=== PATIENT | female | born 1930 | race Caucasian/White ===

== ENCOUNTER 2016-06-24 11:44 | Emergency (ER) | payer OTHER, BC ==
--- NOTE | 2016-06-24 12:18 | PDOC ---
History of Present Illness - History of Present Illness Initial Comments: 06/24/16 12:29 The patient is an 86-year-old woman, accompanied by daughter, with a significant past medical history of hypertension, hypothyroidism, diabetes mellitus, endometrial Ca status post full hysterectomy, Parkinson's disease and dementia who presents to the emergency department for further evaluation of a witnessed mechanical fall. History was obtained by patient's daughter. As per daughter, the patient was in the bathroom, washing her hands, when she attempted to grab her cane and lost her balance and questionably hit her head. No loss of consciousness. Patient's daughter attributes this to patient's Parkinson's disease, as she has noted it has gotten worse for the past several months (notes increasing tremors). As per patient, she denies any pain or any associated symptoms of chest pain, shortness of breath, palpitations, headaches , lightheadedness, dizziness, nausea, vomiting, visual changes. No recent fever , chills, cough, rhinorrhea, sneezing, abdominal pain. No urinary symptoms Allergies: No Known Drug Allergies Past Surgical History: Total hysterectomy. Appendectomy. Social History: Never smoked. No ETOH or recreational drug use. Primary Care Physician: Dr. Jennifer Dennis <Vivian Espinosa - Last Filed: 06/24/16 13:01> - General History Source: Patient, Family, Old Records Exam Limitations: No Limitations <Ivelisse Toth - Last Filed: 06/24/16 15:53> - General Chief Complaint: Syncope/Near Syncope Stated Complaint: FALL Time Seen by Provider: 06/24/16 12:06 Past History <Vivian Espinosa - Last Filed: 06/24/16 13:01> - Past Medical History Dementia: Yes Diabetes: Yes HTN: Yes - Surgical History Abdominal Surgery: Yes (EXPLORATIVE) Appendectomy: Yes - Psycho/Social/Smoking Cessation Hx Anxiety: No Suicidal Ideation: No Smoking History: Never smoked Have you smoked in the past 12 months: No Hx Alcohol Use: No Drug/Substance Use Hx: No Substance Use Type: None <Ivelisse Toth - Last Filed: 06/24/16 15:53> - Past Medical History Allergies/Adverse Reactions: Allergies Allergy/AdvReac Type Severity Reaction Status Date / Time No Known Allergies Allergy Verified 06/24/16 11:53 Home Medications: Ambulatory Orders Amlodipine Besylate 10 mg PO DAILY 06/24/16 Aspirin [ASA -] 81 mg PO DAILY 06/24/16 Bimatoprost [Lumigan] 1 drop IO DAILY 06/24/16 Carbidopa/Levodopa [Carbidopa-Levodopa 25-100 Tab] 1 each PO TID 06/24/16 Ergocalciferol [Drisdol -] 50,000 unit PO Q7D@1000 06/24/16 Hydrochlorothiazide [Hctz -] 12.5 mg PO DAILY 06/24/16 Levothyroxine [Synthroid -] 175 mcg PO DAILY 06/24/16 Magnesium Oxide [Magnesium] 400 mg PO DAILY 06/24/16 Metoprolol Tartrate 25 mg PO DAILY 06/24/16 Metronidazole 0.75% Gel [Metrogel 0.75% Gel -] 1 applic TP DAILY 06/24/16 Nitrofurantoin Monohyd/M-Cryst [Macrobid -] 100 mg PO BID #14 capsule 06/24/16 Valsartan 160 mg PO DAILY 06/24/16 Review of Systems - Review of Systems Able to Perform ROS?: Yes Comments:: 06/24/16 12:29 CONSTITUTIONAL: Absent: fever, chills, diaphoresis, generalized weakness, malaise, loss of appetite HEENT: Absent: rhinorrhea, nasal congestion, throat pain, throat swelling, difficulty swallowing, mouth swelling, ear pain, eye pain, visual Changes CARDIOVASCULAR: Absent: chest pain, syncope, palpitations, irregular heart rate , lightheadedness, peripheral edema RESPIRATORY: Absent: cough, shortness of breath, dyspnea with exertion, orthopnea, wheezing, stridor, hemoptysis GASTROINTESTINAL:Absent: abdominal pain, abdominal distension, nausea, vomiting , diarrhea, constipation, melena, hematochezia GENITOURINARY: Absent: dysuria, frequency, urgency, hesitancy, hematuria, flank pain, genital pain MUSCULOSKELETAL: Absent: myalgia, arthralgia, joint swelling SKIN: Absent: rash, itching, pallor HEMATOLOGIC/IMMUNOLOGIC: Absent: easy bleeding, easy bruising, lymphadenopathy, frequent infections ENDOCRINE:Absent: unexplained weight gain, unexplained weight loss, heat intolerance, cold intolerance NEUROLOGIC: Present: Unsteady gait. Mechanical fall. Absent: headache, focal weakness or paresthesias, dizziness, seizure, mental status changes, bladder or bowel incontinence PSYCHIATRIC: Absent: anxiety, depression, suicidal or homicidal ideation, hallucinations <Vivian Espinosa - Last Filed: 06/24/16 13:01> *Physical Exam - Vital Signs Last Vital Signs Temp Pulse Resp BP Pulse Ox 98.0 F 51 L 18 220/77 99 06/24/16 11:52 06/24/16 11:52 06/24/16 11:52 06/24/16 11:52 06/24/16 11:52 - Physical Exam Comments: 06/24/16 12:29 GENERAL: Well developed, well nourished. Awake and alert. No acute distress. HEENT: Normocephalic, atraumatic. PERRLA, EOMI. No conjunctival pallor. Sclera are non-icteric. Moist mucous membranes. Oropharynx is clear. NECK: Supple. Full ROM. No JVD. CARDIOVASCULAR: Regular rate and rhythm. No murmurs, rubs, or gallops. PULMONARY: No evidence of respiratory distress. Lungs clear to auscultation bilaterally. No wheezing, rales or rhonchi. ABDOMINAL: Soft. Non-tender. Non-distended. No rebound or guarding. No organomegaly. Normoactive bowel sounds. MUSCULOSKELETAL: Normal range of motion at all joints. No bony deformities or tenderness. No CVA tenderness. EXTREMITIES: No cyanosis. No clubbing. No edema. No calf tenderness. SKIN: Lipoma of the right scapula. Warm and dry. Normal capillary refill. No rashes. No jaundice. NEUROLOGICAL: Alert, awake, appropriate. Cranial nerves 2-12 intact. Normal speech. PSYCHIATRIC: Cooperative. Good eye contact. Appropriate mood and affect. <Espinosa,Vivian - Last Filed: 06/24/16 13:01> - Vital Signs Last Vital Signs Temp Pulse Resp BP Pulse Ox 51 L 18 220/77 99 06/24/16 11:52 06/24/16 11:52 06/24/16 11:52 06/24/16 11:52 <Ivelisse Toth - Last Filed: 06/24/16 15:53> ED Treatment Course - LABORATORY CBC & Chemistry Diagram: 06/24/16 12:30 06/24/16 12:30 - RADIOLOGY Radiograph Interpretation: 06/24/16 13:01 RAD/CHEST X-RAY PORTABLE Interpreted by Dr. Moreno Whyte IMPRESSION: No acute pathology. <Vivian Espinosa - Last Filed: 06/24/16 13:01> - LABORATORY CBC & Chemistry Diagram: 06/24/16 12:30 06/24/16 12:30 - RADIOLOGY Radiology Studies Ordered: Category Date Time Status CHEST X-RAY PORTABLE* [RAD] Stat Radiology 06/24/16 12:06 Ordered <Ivelisse Toth - Last Filed: 06/24/16 15:53> Medical Decision Making - Medical Decision Making 06/24/16 12:16 86-year-old female with history of Parkinson's disease, hypertension, hypothyroid disease, endometrial cancer who presents the emergency department status post mechanical fall after losing her balance with questionable striking of her head. Differential diagnosis includes but is not limited to: TBI, concussion, contusion to head, UTI, ACS, pneumonia, electrolyte abnormality, toxic/metabolic derangement. Plan: 1. EKG 2. Chest x-ray 3. Urine analysis 4. Labs 5. CT head 6. Observe and reevaluate 06/24/16 15:51 Addendum: Labs were reviewed and are noted in the EMR. The urine is + for UTI and she was given macrobid in the ED. Head CT and CXR show no acute disease. Will discharge home with Rx for Macrobid. I have advised the patient to follow -up with Dr. Dennis next week and to return to the ED if Sx persist, worsen or new Sx arise. <Ivelisse Toth - Last Filed: 06/24/16 15:53> *DC/Admit/Observation/Transfer <Vivian Espinosa - Last Filed: 06/24/16 13:01> - Discharge Dispostion Admit: No - Attestations Physician Attestion: 06/24/16 12:17 I, Dr. Ivelisse Toth, attest that the scribes documentation that appears above has been prepared under my direction and personally reviewed by me in its entirety. I confirmed that the note above accurately reflects all work, treatment, procedures, and medical decision-making performed by me. <Ivelisse Toth - Last Filed: 06/24/16 15:53> Diagnosis at time of Disposition: Fall, Urinary tract infection - Discharge Dispostion Disposition: HOME Condition at time of disposition: Stable - Prescriptions Prescriptions: Nitrofurantoin Monohyd/M-Cryst [Macrobid -] 100 mg PO BID #14 capsule - Referrals Referrals: Jennifer Dennis MD [Primary Care Provider] - - Patient Instructions Additional Instructions: You have a urinary tract infection. You have been prescribed Macrobid 100mg-- take one tablet twice per day for one week. Please follow-up with your primary care physician within the next 1-3 days. return to the ED if your symptoms persist, worsen or new symptoms arise.
[2016-06-24 12:20] VITALS: BMI 35.5
[2016-06-24 13:02] LABS: BASOPHIL 2.8 % (0-2.0); EOSINOPHIL 9.3 % (0-4.5); MCH 29.3 pg (25.7-33.7); MCHC 33.5 g/dl (32.0-36.0); MEAN CELL VOLUME 87.3 fl (80-96); MEAN PLT VOLUME 8.6 fl (7.5-11.1); NEUTROPHILS 53.8 % (42.8-82.8); PLATELET COUNT 233 K/MM3 (134-434); RDW 14.5 % (11.6-15.6); WHITE BLOOD COUNT 7.1 K/mm3 (4.0-10.0)
[2016-06-24 13:04] LABS: URINE APPEARANCE SLCLOUDY; URINE BILIRUBIN NEGATIVE (NEGATIVE); URINE COLOR YELLOW; URINE GLUCOSE (UA) NEGATIVE (NEGATIVE); URINE KETONE NEGATIVE (NEGATIVE); URINE NITRITE NEGATIVE (NEGATIVE); URINE UROBILINOGEN NEGATIVE E.U./dl (0.2-1.0)
[2016-06-24 13:14] LABS: URINE BLOOD 1+ (NEGATIVE); URINE LEUK ESTERASE 1+ (NEGATIVE); URINE PROTEIN 3+ (NEGATIVE)
[2016-06-24 13:16] LABS: URINE BACTERIA FEW /hpf (NONE SEEN); URINE RBC 9 /hpf (0-3); URINE WBC 20 /hpf (3-5)
[2016-06-24 13:32] LABS: BILIRUBIN,TOTAL 0.8 mg/dL (0.2-1.0); CALCIUM 8.8 mg/dL (8.5-10.1); COCKROFT - GAULT 37.3915; CREATININE 1.4 mg/dL (0.55-1.02); MAGNESIUM 2.2 mg/dL (1.8-2.4); PHOSPHOROUS 3.1 mg/dL (2.5-4.9); TOT PROT 6.4 g/dl (6.4-8.2)
[2016-06-24 13:33] LABS: TROPONIN I 0.03 ng/ml (0.00-0.05)
[2016-06-24] MEDS ORDERED: NITROFURANTOIN MACROCRYSTAL 50 MG CAPSULE (FP) PO SCH (13:45)
[2016-06-24] MEDS ORDERED: SODIUM CHLORIDE 1,000 ML IV STA (13:51)
[2016-06-24] MEDS ORDERED: NITROFURANTOIN MACROCRYSTAL 50 MG CAPSULE (FP) ONE (14:34)
[2016-06-24 16:35] VITALS: BP 189/75; PULSE 77; TEMP 97.1
--- NOTE | 2016-06-24 17:12 | EKG ---
Test Reason : Blood Pressure : / mmHG Vent. Rate : 050 BPM Atrial Rate : 050 BPM P-R Int : 246 ms QRS Dur : 142 ms QT Int : 472 ms P-R-T Axes : 046 -40 112 degrees QTc Int : 430 ms SINUS BRADYCARDIA WITH 1ST DEGREE A-V BLOCK LEFT AXIS DEVIATION LEFT BUNDLE BRANCH BLOCK ABNORMAL ECG WHEN COMPARED WITH ECG OF 04-JUL-2015 06:31, NO SIGNIFICANT CHANGE WAS FOUND Confirmed by NEELIMA SALCIDO MD ([id number]) on 06/24/2016 5:12:20 PM Referred By: Confirmed By:NEELIMA SALCIDO MD
== END 2016-06-24 16:36 | disposition home or self-care (01) ==
LOC: JER 11:44
PROC: 3E0337Z Introduction of Electrolytic and Water Balance Substance into Peripheral Vein, Percutaneous Approach (ICD-10-PCS; principal; 2016-06-24)
DX: S09.90XA Unspecified injury of head, initial encounter (principal); N39.0 Urinary tract infection, site not specified; W18.39XA Other fall on same level, initial encounter; Y93.E8 Activity, other personal hygiene; Y92.031 Bathroom in apartment as the place of occurrence of the external cause; I10 Essential (primary) hypertension; E11.9 Type 2 diabetes mellitus without complications; E03.9 Hypothyroidism, unspecified; G20 Parkinson's disease; F02.80 Dementia in other diseases classified elsewhere, unspecified severity, without behavioral disturbance, psychotic disturbance, mood disturbance, and anxiety
CPT/HCPCS: 36415; 70450-TC; 71010-TC; 80053; 81003; 81015; 82550; 83690; 83735; 84100; 84484; 85025; 87086; 87186; 93005; 93010; 96360; 99285-25

== ENCOUNTER 2016-07-19 17:21 | Inpatient (IN) | payer OTHER, BC ==
[2016-07-19 18:19] LABS: BASOPHIL 1.1 % (0-2.0); EOSINOPHIL 6.5 % (0-4.5); MCH 29.4 pg (25.7-33.7); MCHC 33.9 g/dl (32.0-36.0); MEAN CELL VOLUME 86.7 fl (80-96); MEAN PLT VOLUME 8.4 fl (7.5-11.1); PLATELET COUNT 248 K/MM3 (134-434); RDW 14.6 % (11.6-15.6); WHITE BLOOD COUNT 8.2 K/mm3 (4.0-10.0)
[2016-07-19 18:24] LABS: URINE APPEARANCE TURBID; URINE BILIRUBIN NEGATIVE (NEGATIVE); URINE BLOOD 1+ (NEGATIVE); URINE COLOR YELLOW; URINE GLUCOSE (UA) 2+ (NEGATIVE); URINE KETONE NEGATIVE (NEGATIVE); URINE LEUK ESTERASE 3+ (NEGATIVE); URINE NITRITE POSITIVE (NEGATIVE); URINE PROTEIN 2+ (NEGATIVE); URINE UROBILINOGEN NEGATIVE E.U./dl (0.2-1.0)
[2016-07-19 19:05] LABS: ALBUMIN 2.9 g/dl (3.4-5.0); ANION GAP 10 (8-16); BILIRUBIN,TOTAL 0.6 mg/dL (0.2-1.0); CALCIUM 8.8 mg/dL (8.5-10.1); CO2 28 mmol/L (21-32); COCKROFT - GAULT 31.6965; CREATININE 1.3 mg/dL (0.55-1.02); GLUCOSE,RANDOM 160 mg/dL (74-106); SGOT/AST 9 U/L (15-37); SGPT/ALT 10 U/L (12-78); TOT PROT 5.9 g/dl (6.4-8.2)
[2016-07-19 19:08] LABS: ALK PHOS 97 U/L (45-117); TROPONIN I < 0.02 ng/ml (0.00-0.05)
--- NOTE | 2016-07-19 19:09 | PDOC ---
History of Present Illness - General History Source: Patient, Care Provider Exam Limitations: No Limitations <Jenifer Gómez - Last Filed: 07/19/16 19:32> <Pooja Reyes - Last Filed: 07/19/16 19:57> - General Chief Complaint: Irregular Heart Beat Stated Complaint: Irregular Heart Beat Time Seen by Provider: 07/19/16 18:27 - History of Present Illness Initial Comments: 07/19/16 19:04 86 yo F with h/o HTN, DM dementia, CVA hypothyroid, parkinsons, here wtih bradycardia. was discovered by the visiting nurse who came by this am. pt states she had an echo last week in Dr. Dennis office which was normal per daughter of pt. pt denies feeling sob, dizzy or lightheaded. no f/c no other complaints. was recently started on rosuvastatin and folic acid. other meds alodipine 10, lovethyroxine 0.175, asa 81, hctz 12.5 toprol 25, magnesium 400, valsartan 160 carbidopa/ levodopa lumigam drops eye (Jenifer Gómez) Past History - Past Medical History Dementia: Yes Diabetes: Yes HTN: Yes Thyroid Disease: Yes Other medical history: PARKISONS - Surgical History Abdominal Surgery: Yes (EXPLORATIVE) Appendectomy: Yes - Psycho/Social/Smoking Cessation Hx Anxiety: No Suicidal Ideation: No Smoking History: Never smoked Have you smoked in the past 12 months: No Hx Alcohol Use: No Drug/Substance Use Hx: No Substance Use Type: None <Jenifer Gómez - Last Filed: 07/19/16 19:32> <Pooja Reyes - Last Filed: 07/19/16 19:57> - Past Medical History Allergies/Adverse Reactions: Allergies Allergy/AdvReac Type Severity Reaction Status Date / Time No Known Allergies Allergy Verified 07/19/16 17:42 Home Medications: Ambulatory Orders Amlodipine Besylate 10 mg PO DAILY 06/24/16 Aspirin [ASA -] 81 mg PO DAILY 06/24/16 Bimatoprost [Lumigan] 1 drop IO DAILY 06/24/16 Ergocalciferol [Drisdol -] 50,000 unit PO Q7D@1000 06/24/16 Hydrochlorothiazide [Hctz -] 12.5 mg PO DAILY 06/24/16 Levothyroxine [Synthroid -] 175 mcg PO DAILY 06/24/16 Magnesium Oxide [Magnesium] 400 mg PO DAILY 06/24/16 Metoprolol Tartrate 25 mg PO DAILY 06/24/16 Folic Acid 1 mg PO DAILY 07/19/16 Rosuvastatin [Crestor -] 5 mg PO HS 07/19/16 Review of Systems - Review of Systems Constitutional: No: Chills, Diaphoresis HEENTM: No: Eye Pain, Blurred Vision Respiratory: No: Cough, Orthopnea Cardiac (ROS): No: Chest Pain, Syncope, Chest Tightness All Other Systems: Reviewed and Negative <Jenifer Gómez - Last Filed: 07/19/16 19:32> *Physical Exam - Physical Exam General Appearance: Yes: Appropriately Dressed HEENT: positive: MARGO Neck: positive: Trachea midline Respiratory/Chest: positive: Lungs Clear, Normal Breath Sounds Cardiovascular: positive: Bradycardia. negative: Edema Vascular Pulses: Dorsalis-Pedis (R): 2+, Doralis-Pedis (L): 2+ Gastrointestinal/Abdominal: positive: Normal Bowel Sounds. 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 left axis. TWI AVL, I, compared to 06/24/16 old left bundle. similar TWI, sinus talia at that time. (Jenifer Gómez) ED Treatment Course - LABORATORY CBC & Chemistry Diagram: 07/19/16 17:52 07/19/16 17:52 <Jenifer Gómez - Last Filed: 07/19/16 19:32> - LABORATORY CBC & Chemistry Diagram: 07/19/16 17:52 07/19/16 17:52 <Pooja Reyes - Last Filed: 07/19/16 19:57> - ADDITIONAL ORDERS Additional order review: Laboratory Results 07/19/16 07/19/16 07/19/16 18:17 17:52 17:52 Sodium 140 Potassium 3.9 Chloride 102 Carbon Dioxide 28 Anion Gap 10 BUN 30 H Creatinine 1.3 H Creat Clearance w eGFR 38.66 Random Glucose 160 H D Calcium 8.8 Total Bilirubin 0.6 D AST 9 L ALT 10 L Alkaline Phosphatase 97 Creatine Kinase 58 Troponin I < 0.02 Total Protein 5.9 L Albumin 2.9 L TSH 2.79 D Urine Color Yellow Urine Appearance Turbid Urine pH 6.0 Urine Protein 2+ H Urine Glucose (UA) 2+ H Urine Ketones Negative Urine Blood 1+ H Urine Nitrite Positive Urine Bilirubin Negative Urine Urobilinogen Negative Ur Leukocyte Esterase 3+ H D Urine RBC 8 Urine WBC 977 Ur Epithelial Cells Many Urine Bacteria Many Hyaline Casts 8 Urine Yeast Many 07/19/16 17:52 RBC 3.95 MCV 86.7 MCHC 33.9 RDW 14.6 MPV 8.4 Neutrophils % 61.0 Lymphocytes % 24.2 Monocytes % 7.2 Eosinophils % 6.5 H Basophils % 1.1 Medical Decision Making <Jenifer Gómez - Last Filed: 07/19/16 19:32> <Pooja Reyes - Last Filed: 07/19/16 19:57> - Medical Decision Making 07/19/16 19:14 86 yo F with h/;o HTN, hypothryoid parkinsons, here with bradycardia, and ekg with afib with slow rate vs. third block, asxs at this time. differential includes new afib, bblocker toxicity, ccb toxicity, hypothyroid. plan tele labs ekg, glucagon, . will d/w cardiology and pt primary doctor dr. Dennis. likely admit tele tsh (Jenifer Gómez) 07/19/16 19:49 Second call placed for Dr. Jennifer Dennis (via answering service) at 19:49 Awaiting call back 07/19/16 19:54 Patient's case discussed with Dr. Michael Subramanian covering for Dr. Dennis at 19:54 ( Pooja Reyes) *DC/Admit/Observation/Transfer - Discharge Dispostion Admit: Yes <Jenifer Gómez - Last Filed: 07/19/16 19:32> <Pooja Reyes - Last Filed: 07/19/16 19:57> Diagnosis at time of Disposition: Bradycardia - Referrals Referrals: Jennifer Dennis MD [Primary Care Provider] -
[2016-07-19 19:34] LABS: URINE BACTERIA MANY /hpf (NONE SEEN); URINE HYALINE CAST 8 /lpf; URINE RBC 8 /hpf (0-3); URINE WBC 977 /hpf (3-5); YEAST MANY
[2016-07-19] MEDS ORDERED: CEFTRIAXONE 1 GM in DEXTROSE 5%-WATER - 50 ML IVPB ONE (19:34)
[2016-07-19] MEDS ORDERED: CEFTRIAXONE 50 ML ONE (19:57)
[2016-07-19] MEDS ORDERED: HEPARIN NA (PORCINE) 5,000 UNITS/ML 1ML VIAL ONE (23:26)
[2016-07-19] MEDS: HEPARIN NA (PORCINE) 5,000 UNITS/ML 1ML VIAL SQ SCH (23:30)
--- NOTE | 2016-07-20 01:24 | PDOC ---
*Physical Exam - Vital Signs Last Vital Signs Temp Pulse Resp BP Pulse Ox 97.7 F 47 L 13 155/93 98 07/19/16 17:42 07/20/16 00:58 07/20/16 00:58 07/20/16 00:58 07/20/16 00:58 ED Treatment Course - LABORATORY CBC & Chemistry Diagram: 07/19/16 17:52 07/19/16 17:52 - ADDITIONAL ORDERS Additional order review: Laboratory Results 07/19/16 07/19/16 07/19/16 18:17 17:52 17:52 Sodium 140 Potassium 3.9 Chloride 102 Carbon Dioxide 28 Anion Gap 10 BUN 30 H Creatinine 1.3 H Creat Clearance w eGFR 38.66 Random Glucose 160 H D Calcium 8.8 Total Bilirubin 0.6 D AST 9 L ALT 10 L Alkaline Phosphatase 97 Creatine Kinase 58 Troponin I < 0.02 Total Protein 5.9 L Albumin 2.9 L TSH 2.79 D Urine Color Yellow Urine Appearance Turbid Urine pH 6.0 Urine Protein 2+ H Urine Glucose (UA) 2+ H Urine Ketones Negative Urine Blood 1+ H Urine Nitrite Positive Urine Bilirubin Negative Urine Urobilinogen Negative Ur Leukocyte Esterase 3+ H D Urine RBC 8 Urine WBC 977 Ur Epithelial Cells Many Urine Bacteria Many Hyaline Casts 8 Urine Yeast Many 07/19/16 17:52 RBC 3.95 MCV 86.7 MCHC 33.9 RDW 14.6 MPV 8.4 Neutrophils % 61.0 Lymphocytes % 24.2 Monocytes % 7.2 Eosinophils % 6.5 H Basophils % 1.1 - Medications Given in the ED: ED Medications Discontinued Medications Generic Name Dose Route Start Last Admin Trade Name [place] PRN Reason Stop Dose Admin Ceftriaxone Sodium 1 gm/ 50 mls @ 100 mls/hr 07/19/16 19:34 07/19/16 20:45 Dextrose IVPB 07/19/16 20:03 100 mls/hr ONCE ONE Administration Medical Decision Making - Medical Decision Making 07/20/16 01:19 Telemetry floor did not want to take on telemetry floor, because of pt bradycardia. Pt has not been symptomatic since she has been here. Pt will be accepted to ICU. *DC/Admit/Observation/Transfer Diagnosis at time of Disposition: Bradycardia
[2016-07-20 02:26] VITALS: BMI 25.8
[2016-07-20] MEDS ORDERED: hydrALAZINE HCL 20 MG/ML VIAL IM PRN (02:57)
--- NOTE | 2016-07-20 03:04 | CONSULT ---
Consult Consult Specialty:: Pulm/CCM Reason for Consultation:: bradycardia, HTN - History of Present Illness Chief Complaint: none History of Present Illness: 86 yo F with h/o HTN, DM dementia, CVA hypothyroid, parkinsons, CKD (SCr 1.3) p /w stable bradycardia. She was in her USOH when on day of admission he was found to be bradycaric by visiting RN and was sent to ED. In the HR 30-40, 3rd degree HB, SBP 160's. Troponin negative. Initially admitted to tele but given 3rd degree HB she was sent to ICU. In the ICU she is w/o complaint. SBP >200 and hydralazine IV given. - History Source History Provided By: Patient, Medical Record Limitations to Obtaining History: Dementia - Past Medical History Cardio/Vascular: Yes: HTN, Hyperlipdemia Renal/: Yes: Renal Inusuff ...: No Endocrine: Yes: Diabetes Mellitus Dermatology: Yes: Other (tinea) - Alcohol/Substance Use Hx Alcohol Use: No - Smoking History Smoking history: Never smoked Have you smoked in the past 12 months: No Home Medications - Allergies Allergies/Adverse Reactions: Allergies Allergy/AdvReac Type Severity Reaction Status Date / Time No Known Allergies Allergy Verified 07/19/16 17:42 - Home Medications Home Medications: Ambulatory Orders Amlodipine Besylate 10 mg PO DAILY 06/24/16 Aspirin [ASA -] 81 mg PO DAILY 06/24/16 Bimatoprost [Lumigan] 1 drop IO DAILY 06/24/16 Ergocalciferol [Drisdol -] 50,000 unit PO Q7D@1000 06/24/16 Hydrochlorothiazide [Hctz -] 12.5 mg PO DAILY 06/24/16 Levothyroxine [Synthroid -] 175 mcg PO DAILY 06/24/16 Magnesium Oxide [Magnesium] 400 mg PO DAILY 06/24/16 Metoprolol Tartrate 25 mg PO DAILY 06/24/16 Folic Acid 1 mg PO DAILY 07/19/16 Rosuvastatin [Crestor -] 5 mg PO HS 07/19/16 Family Disease History - Family Disease History Family History: Unremarkable Review of Systems - Review of Systems Constitutional: reports: No Symptoms Physical Exam Vital Signs: Vital Signs Temperature 97.6 F 07/20/16 02:12 Pulse Rate 36 L 07/20/16 02:12 Respiratory Rate 15 07/20/16 02:12 Blood Pressure 161/72 07/20/16 02:12 O2 Sat by Pulse Oximetry (%) 98 07/20/16 02:12 Current Medications Amlodipine Besylate (Norvasc -) 10 mg PO DAILY [facility] Aspirin (Asa -) 81 mg PO DAILY [facility] Folic Acid (Folic Acid -) 1 mg PO DAILY [facility] Heparin Sodium (Porcine) (Heparin -) 5,000 unit SQ BID MELISSA Last Admin: 07/19/16 23:30 Dose: 5,000 unit Hydralazine HCl (Apresoline Injection -) 10 mg IM Q8H PRN PRN Reason: SBP >190 Hydrochlorothiazide (Hctz -) 12.5 mg PO DAILY [facility] Latanoprost (Xalatan 0.005% Eye Drops -) 1 drop OU HS MELISSA Levothyroxine Sodium 100 mcg/ (Levothyroxine Sodium 75 mcg) 175 mcg PO DAILY@ 0700 MELISSA Rosuvastatin Calcium (Crestor -) 5 mg PO HS MELISSA Constitutional: Yes: No Distress, Calm Eyes: Yes: Conjunctiva Clear Cardiovascular: Yes: Bradycardia, S1, S2 Respiratory: Yes: CTA Bilaterally Gastrointestinal: Yes: Normal Bowel Sounds, Soft Edema: No Neurological: Yes: Alert Labs: CBCD WBC 8.2 K/mm3 (4.0-10.0) 07/19/16 17:52 RBC 3.95 M/mm3 (3.60-5.2) 07/19/16 17:52 Hgb 11.6 GM/dL (10.7-15.3) 07/19/16 17:52 Hct 34.3 % (32.4-45.2) 07/19/16 17:52 MCV 86.7 fl (80-96) 07/19/16 17:52 MCHC 33.9 g/dl (32.0-36.0) 07/19/16 17:52 RDW 14.6 % (11.6-15.6) 07/19/16 17:52 Plt Count 248 K/MM3 (134-434) 07/19/16 17:52 MPV 8.4 fl (7.5-11.1) 07/19/16 17:52 CMP Sodium 140 mmol/L (136-145) 07/19/16 17:52 Potassium 3.9 mmol/L (3.5-5.1) 07/19/16 17:52 Chloride 102 mmol/L (98-107) 07/19/16 17:52 Carbon Dioxide 28 mmol/L (21-32) 07/19/16 17:52 Anion Gap 10 (8-16) 07/19/16 17:52 BUN 30 mg/dL (7-18) H 07/19/16 17:52 Creatinine 1.3 mg/dL (0.55-1.02) H 07/19/16 17:52 Creat Clearance w eGFR 38.66 (>60) 07/19/16 17:52 Random Glucose 160 mg/dL (74-106) H D 07/19/16 17:52 Calcium 8.8 mg/dL (8.5-10.1) 07/19/16 17:52 Total Bilirubin 0.6 mg/dL (0.2-1.0) D 07/19/16 17:52 AST 9 U/L (15-37) L 07/19/16 17:52 ALT 10 U/L (12-78) L 07/19/16 17:52 Alkaline Phosphatase 97 U/L (45-117) 07/19/16 17:52 Total Protein 5.9 g/dl (6.4-8.2) L 07/19/16 17:52 Albumin 2.9 g/dl (3.4-5.0) L 07/19/16 17:52 CARDIAC ENZYMES Creatine Kinase 58 IU/L (26-192) 07/19/16 17:52 Troponin I < 0.02 ng/ml (0.00-0.05) 07/19/16 17:52 Imaging - Results Chest X-ray: Report Reviewed, Image Reviewed Problem List - Problems (1) Bradycardia Code(s): R00.1 - BRADYCARDIA, UNSPECIFIED (2) DM2 (diabetes mellitus, type 2) Code(s): E11.9 - TYPE 2 DIABETES MELLITUS WITHOUT COMPLICATIONS (3) Dementia Code(s): F03.90 - UNSPECIFIED DEMENTIA WITHOUT BEHAVIORAL DISTURBANCE (4) Chronic kidney disease (CKD) Code(s): N18.9 - CHRONIC KIDNEY DISEASE, UNSPECIFIED Assessment/Plan 86 yo woman with stable bradycardia -tele monitoring -O2 for sat >89% -cardiology consult will need PPM -pacer pads bedside -cont home meds, holding el blockers -prn hydralazine for SBP >190 -DVT prophylaxis [facility] Pulm/CCM
[2016-07-20] MEDS ORDERED: hydrALAZINE HCL 20 MG/ML VIAL ONE (03:22)
[2016-07-20] MEDS: hydrALAZINE HCL 20 MG/ML VIAL IVPUSH PRN ×2 (03:30→20:08)
[2016-07-20] MEDS ORDERED: SODIUM CHLORIDE 1,000 ML IV SCH (04:00)
[2016-07-20 06:31] LABS: BASOPHIL 0.9 % (0-2.0); EOSINOPHIL 6.6 % (0-4.5); MCH 29.6 pg (25.7-33.7); MCHC 34.3 g/dl (32.0-36.0); MEAN CELL VOLUME 86.3 fl (80-96); MEAN PLT VOLUME 8.5 fl (7.5-11.1); NEUTROPHILS 60.4 % (42.8-82.8); PLATELET COUNT 244 K/MM3 (134-434); RDW 14.6 % (11.6-15.6); WHITE BLOOD COUNT 8.2 K/mm3 (4.0-10.0)
[2016-07-20] MEDS ORDERED: LEVOTHYROXINE NA 75 MCG TABLET (FP) ONE (06:33)
[2016-07-20] MEDS ORDERED: LEVOTHYROXINE NA 100 MCG TABLET (FP) ONE (06:33)
[2016-07-20] MEDS: LEVOTHYROXINE 100 MCG, LEVOTHYROXINE 75 MCG PO SCH (06:34)
[2016-07-20 06:55] LABS: ALBUMIN 2.7 g/dl (3.4-5.0); CALCIUM 8.3 mg/dL (8.5-10.1); COCKROFT - GAULT 31.7985; CREATININE 1.2 mg/dL (0.55-1.02); MAGNESIUM 1.9 mg/dL (1.8-2.4)
[2016-07-20 06:59] LABS: BILIRUBIN,TOTAL 0.6 mg/dL (0.2-1.0); TOT PROT 5.4 g/dl (6.4-8.2); TROPONIN I 0.02 ng/ml (0.00-0.05)
--- NOTE | 2016-07-20 09:31 | HP ---
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 She was in her USOH when on day of admission he was found to be bradycaric by visiting RN and was sent to ED. In the HR 30-40, 3rd degree HB, SBP 160's. Troponin negative. Initially admitted to tele but given 3rd degree HB she was sent to ICU. In the ICU she is w/o complaint. SBP >200 and hydralazine IV given. pt states had sob yesterday which is better today - Past Medical History Cardiovascular: Yes: HTN, Hyperlipdemia, Other (valvular heart ds) Renal/: Yes: Renal Inusuff ...: No Endocrine: Yes: Diabetes Mellitus Dermatology: Yes: Other (tinea) - Smoking History Smoking history: Never smoked Have you smoked in the past 12 months: No - Alcohol/Substance Use Hx Alcohol Use: No <Michael Subramanian - Last Filed: 07/20/16 11:21> Home Medications <Raul De Luna - Last Filed: 07/20/16 11:02> <Michael Subramanian - Last Filed: 07/20/16 11:21> - Allergies Allergies/Adverse Reactions: Allergies Allergy/AdvReac Type Severity Reaction Status Date / Time No Known Allergies Allergy Verified 07/19/16 17:42 - Home Medications Home Medications: Ambulatory Orders Amlodipine Besylate 10 mg PO DAILY 06/24/16 Aspirin [ASA -] 81 mg PO DAILY 06/24/16 Bimatoprost [Lumigan] 1 drop IO DAILY 06/24/16 Ergocalciferol [Drisdol -] 50,000 unit PO Q7D@1000 06/24/16 Hydrochlorothiazide [Hctz -] 12.5 mg PO DAILY 06/24/16 Levothyroxine [Synthroid -] 175 mcg PO DAILY 06/24/16 Magnesium Oxide [Magnesium] 400 mg PO DAILY 06/24/16 Metoprolol Tartrate 25 mg PO DAILY 06/24/16 Folic Acid 1 mg PO DAILY 07/19/16 Rosuvastatin [Crestor -] 5 mg PO HS 07/19/16 Review of Systems - Review of Systems Cardiovascular: denies: No Symptoms, Chest Pain, Palpitations, Shortness of Breath, Other Respiratory: denies: Orthopnea, PND, SOB, SOB on Exertion, Wheezing <Raul De Luna - Last Filed: 07/20/16 11:02> - Review of Systems Cardiovascular: reports: Shortness of Breath, Other (bradycardia). denies: Chest Pain Respiratory: reports: SOB, SOB on Exertion. denies: Cough, Wheezing Gastrointestinal: denies: Abdominal Pain Genitourinary: reports: No Symptoms Musculoskeletal: reports: No Symptoms Neurological: reports: Weakness <Michael Subramanian - Last Filed: 07/20/16 11:21> Physical Examination Vital Signs: Vital Signs Temperature 97.3 F L 07/20/16 06:30 Pulse Rate 38 L 07/20/16 06:30 Respiratory Rate 15 07/20/16 06:30 Blood Pressure 169/81 07/20/16 06:30 O2 Sat by Pulse Oximetry (%) 98 07/20/16 02:12 Constitutional: Yes: Well Nourished, No Distress, Calm HENT: Yes: Atraumatic Neck: Yes: WNL Cardiovascular: Yes: Bradycardia, Pulse Irregular, S1, S2. No: Bruit, JVD, Gallop, Murmur, S3, S4 Respiratory: Yes: WNL Gastrointestinal: Yes: Normal Bowel Sounds, Soft Extremities: Yes: WNL (Warm extremities) Edema: Yes (Trace) Labs: CBC, BMP 07/20/16 05:10 07/20/16 05:10 <Raul De Luna - Last Filed: 07/20/16 11:02> Vital Signs: Vital Signs Temperature 97.3 F L 07/20/16 06:30 Pulse Rate 38 L 07/20/16 06:30 Respiratory Rate 15 07/20/16 06:30 Blood Pressure 169/81 07/20/16 06:30 O2 Sat by Pulse Oximetry (%) 98 07/20/16 02:12 Neck: Yes: Supple Cardiovascular: Yes: Bradycardia, Murmur, S1, S2 Respiratory: Yes: Regular, CTA Bilaterally Gastrointestinal: Yes: Normal Bowel Sounds, Soft. No: Tenderness Edema: No Neurological: Yes: Alert, Oriented Labs: CBC, BMP 07/20/16 05:10 07/20/16 05:10 <Michael Subramanian - Last Filed: 07/20/16 11:21> Imaging - Results Chest X-ray: Report Reviewed EKG: Report Reviewed, Image Reviewed Other: Other (Last echo 06/2015) <Raul De Luna - Last Filed: 07/20/16 11:02> - Results EKG: Report Reviewed (sinus pvc 2nd degree block) <Michael Subramanian - Last Filed: 07/20/16 11:21> Problem List - Problems (1) AV block, 2nd degree Assessment/Plan: observe off b-nikole icu cardio Code(s): I44.1 - ATRIOVENTRICULAR BLOCK, SECOND DEGREE (2) Bradycardia Assessment/Plan: as above Code(s): R00.1 - BRADYCARDIA, UNSPECIFIED (3) DM2 (diabetes mellitus, type 2) Assessment/Plan: bgm ss Code(s): E11.9 - TYPE 2 DIABETES MELLITUS WITHOUT COMPLICATIONS (4) Dementia Assessment/Plan: monitor ms Code(s): F03.90 - UNSPECIFIED DEMENTIA WITHOUT BEHAVIORAL DISTURBANCE (5) Hypothyroid Assessment/Plan: tsh 2 same meds Code(s): E03.9 - HYPOTHYROIDISM, UNSPECIFIED <Michael Subramanian - Last Filed: 07/20/16 11:21> Assessment/Plan - Problems (1) Bradycardia monitor in icu cardio echo Code(s): R00.1 - BRADYCARDIA, UNSPECIFIED (2) DM2 (diabetes mellitus, type 2) bg ss Code(s): E11.9 - TYPE 2 DIABETES MELLITUS WITHOUT COMPLICATIONS (3) Dementia Code(s): F03.90 - UNSPECIFIED DEMENTIA WITHOUT BEHAVIORAL DISTURBANCE (4) Chronic kidney disease (CKD) monitor renal function Code(s): N18.9 - CHRONIC KIDNEY DISEASE, UNSPECIFIED <Michael Subramanian - Last Filed: 07/20/16 11:21>
[2016-07-20] MEDS ORDERED: LEVOTHYROXINE NA 175 MCG TABLET PO SCH (10:00)
[2016-07-20] MEDS: ASPIRIN 81 MG CHEWABLE TABLETS PO SCH (10:21)
[2016-07-20] MEDS: HYDROCHLOROTHIAZIDE 12.5 MG CAPSULE (FP) PO SCH (10:21)
[2016-07-20] MEDS: HEPARIN NA (PORCINE) 5,000 UNITS/ML 1ML VIAL SQ SCH ×2 (10:21→21:44)
[2016-07-20] MEDS: amLODIPine BESYLATE 10 MG TABLET (FP) PO SCH (10:21)
[2016-07-20] MEDS: FOLIC ACID 1 MG TABLET (FP) PO SCH (10:21)
--- NOTE | 2016-07-20 10:21 | EKG ---
Test Reason : Blood Pressure : / mmHG Vent. Rate : 040 BPM Atrial Rate : 066 BPM P-R Int : 000 ms QRS Dur : 150 ms QT Int : 556 ms P-R-T Axes : 058 -17 129 degrees QTc Int : 453 ms SINUS RHYTHM WITH 2ND DEGREE A-V BLOCK (MOBITZ I) WITH 2:1 A-V CONDUCTION LEFT BUNDLE BRANCH BLOCK ABNORMAL ECG Confirmed by MIGUEL JUDGE MD ([id number]) on 07/20/2016 10:20:34 AM Referred By: IRON CALDERON Confirmed By:MIGUEL JUDGE MD
--- NOTE | 2016-07-20 10:24 | CON.CARD ---
Consult Consult Specialty:: Cardiology Referred by:: Dr. Michael Subramanian Reason for Consultation:: Bradycardia - History of Present Illness Chief Complaint: Bradycardia History of Present Illness: This is a 86 yo F with history of HTN, DM, CVA, hypothyroid, parkinson, CKD, ( Cr 1.2-1.3), and dementia, who was admitted to ICU due to bradycardia. Patient was sent to ED by visiting nurse due to bradycardia. In ED patient was found with significant bradycardia with elevated BP (SBP: 160). She was admitted to ICU for monitoring and further work up. Patient reports chronic, occasional weakness. Patient denies any CP, palpitations, SOB, dizziness, lightheadedness, syncope or near syncope. No current complaints. Eating at this time. No overnight events. Tele: Sinus talia with second degree ABV (Mobitz I). All ECG reviewed: Sinus bradycardia 40-50s. Second degree AVB Mobitz I with 2: 1 conduction. LBBB with abnormal repolarization. Baseline ECG 06/2016: Sinus talia at 50. First degree AVB with LBBB. Last echo 06/2015: EF: 59%. 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 Cardio/Vascular: Yes: Aortic Stenosis (Mild), HTN, Hyperlipdemia, Mitral Insufficiency (Moderate) Renal/: Yes: Renal Inusuff ...: No Endocrine: Yes: Diabetes Mellitus Dermatology: Yes: Other (tinea) - Past Surgical History Past Surgical History: Yes: Hysterectomy - Alcohol/Substance Use Hx Alcohol Use: No - Smoking History Smoking history: Never smoked Have you smoked in the past 12 months: No - Social History Usual Living Arrangement: With Child Home Medications - Allergies Allergies/Adverse Reactions: Allergies Allergy/AdvReac Type Severity Reaction Status Date / Time No Known Allergies Allergy Verified 07/19/16 17:42 - Home Medications Home Medications: Ambulatory Orders Amlodipine Besylate 10 mg PO DAILY 06/24/16 Aspirin [ASA -] 81 mg PO DAILY 06/24/16 Bimatoprost [Lumigan] 1 drop IO DAILY 06/24/16 Ergocalciferol [Drisdol -] 50,000 unit PO Q7D@1000 06/24/16 Hydrochlorothiazide [Hctz -] 12.5 mg PO DAILY 06/24/16 Levothyroxine [Synthroid -] 175 mcg PO DAILY 06/24/16 Magnesium Oxide [Magnesium] 400 mg PO DAILY 06/24/16 Metoprolol Tartrate 25 mg PO DAILY 06/24/16 Folic Acid 1 mg PO DAILY 07/19/16 Rosuvastatin [Crestor -] 5 mg PO HS 07/19/16 Review of Systems - Review of Systems Constitutional: reports: No Symptoms Cardiovascular: reports: No Symptoms. denies: Chest Pain, Edema, Palpitations, Shortness of Breath Respiratory: denies: Cough, Orthopnea, PND, SOB, SOB on Exertion - Risk Factors Known Risk Factors: Yes: Diabetes Mellitus, Gender, Hypercholesterolemia, Hypertension Vital Signs: Vital Signs Temperature 97.3 F L 07/20/16 06:30 Pulse Rate 38 L 07/20/16 06:30 Respiratory Rate 15 07/20/16 06:30 Blood Pressure 169/81 07/20/16 06:30 O2 Sat by Pulse Oximetry (%) 98 07/20/16 02:12 Constitutional: Yes: No Distress, Calm Neck: Yes: Supple Respiratory: Yes: WNL, CTA Bilaterally Gastrointestinal: Yes: Normal Bowel Sounds, Soft JVD: No Carotid Bruit: No Heart Sounds: Yes: S1, S2. No: S3, S4, Gallop, Rub, Bruit Musculoskeletal: Yes: WNL Extremities: Yes: WNL (Warm extremities) Edema: LLE: Trace, RLE: Trace Neurological: Yes: Alert, Oriented (AAOx2 (Person and place)) - Other Data Labs, Other Data: CBC, BMP 07/20/16 05:10 07/20/16 05:10 Troponin, BNP 07/20/16 05:10 Troponin I 0.02 Troponin, BNP 07/20/16 05:10 Troponin I 0.02 TSH: 2.79. Ma.9. GFR: 42 All ECG reviewed: Sinus bradycardia 40-50s. Second degree AVB Mobitz I with 2: 1 conduction. LBBB with abnormal repolarization. Baseline ECG 06/2016: Sinus talia at 50. First degree AVB with LBBB. Echo: Report Reviewed (Last echo 06/2015: EF: 59%. Moderate MR, mod MAC, mild pHTN, mild ) Ejection Fraction %: LVEF > or = 40 % Imaging - Results Chest X-ray: Report Reviewed, Image Reviewed EKG: Report Reviewed, Image Reviewed Assessment/Plan Patient with sinus bradycardia and second degree AVB Mobitz 1 (2:1) conduction in the setting of beta-blockers (Reversible etiology). Asymptomatic with elevated BP. Sinus bradycardia with First degree AVB and LBBB at baseline. Negative ischemic work up. Recommendations: Avoid AVN blockers. Continue telemetry monitoring for now. Optimization of BP control is required Keep Lytes within the normal limits. Patient to be evaluated by EP once stable for possible PPM (Outpatient evaluation if no further events. Discussed with EP team at [facility]) Keep pacemaker pads and Atropine at bedside Get a new echocardiogram for structural and functional evaluation. Will follow with you Karri De Luna. DIscussed with ICU team
--- NOTE | 2016-07-20 10:54 | EKG ---
Test Reason : Blood Pressure : / mmHG Vent. Rate : 034 BPM Atrial Rate : 039 BPM P-R Int : 000 ms QRS Dur : 146 ms QT Int : 524 ms P-R-T Axes : 049 -27 121 degrees QTc Int : 393 ms POOR DATA QUALITY, INTERPRETATION MAY BE ADVERSELY AFFECTED MARKED SINUS BRADYCARDIA with ATRIAL PREMATURE CONTRACTIONS LEFT BUNDLE BRANCH BLOCK ABNORMAL ECG Confirmed by MIGUEL JUDGE MD ([id number]) on 07/20/2016 10:53:56 AM Referred By: Confirmed By:MIGUEL JUDGE MD
--- NOTE | 2016-07-20 10:56 | EKG ---
Test Reason : Blood Pressure : / mmHG Vent. Rate : 045 BPM Atrial Rate : 085 BPM P-R Int : 000 ms QRS Dur : 144 ms QT Int : 514 ms P-R-T Axes : 000 -46 127 degrees QTc Int : 444 ms POOR DATA QUALITY, INTERPRETATION MAY BE ADVERSELY AFFECTED MARKED SINUS BRADYCARDIA WITH 2ND DEGREE A-V BLOCK (MOBITZ I) PREMATURE ATRIAL COMPLEXES LEFT AXIS DEVIATION LEFT BUNDLE BRANCH BLOCK ABNORMAL ECG Confirmed by MIGUEL JUDGE MD ([id number]) on 07/20/2016 10:55:51 AM Referred By: Confirmed By:MIGUEL JUDGE MD
--- NOTE | 2016-07-20 16:25 | PN ---
Physical Exam: SUBJECTIVE: Patient seen and examined. sitting comfortably in bed, family at bedside. feels well. denies chest pain, sob, abdominal pain, lightheadedness, dizziness. OBJECTIVE: Vital Signs Period Temp Pulse Resp BP Sys/Hernadez Pulse Ox Last 24 Hr 97 F-97.6 F 34-52 11-18 148-188/30-93 98-99 GENERAL: elderly, awake, alert, in no acute distress. EYES: extraocular movements intact, sclera anicteric, conjunctiva clear. ENT: nares patent, oropharynx clear without exudates, missing dentition, moist mucous membranes. NECK: Trachea midline, full range of motion, supple. LUNGS: Breath sounds equal, clear to auscultation bilaterally, no wheezes, no crackles, no accessory muscle use. HEART: bradycardic, irregularly irregular pulse, S1, S2 without murmur. ABDOMEN: Soft, nontender, nondistended, normoactive bowel sounds, no guarding EXTREMITIES: 2+ pulses, warm, well-perfused,+b/l edema, moving all extremities freely. NEUROLOGICAL: Normal speech,facial symmetry Laboratory Results - last 24 hr 07/20/16 07/20/16 07/20/16 05:10 05:10 05:10 WBC 8.2 RBC 3.63 Hgb 10.8 Hct 31.4 L MCV 86.3 MCHC 34.3 RDW 14.6 Plt Count 244 MPV 8.5 Neutrophils % 60.4 Lymphocytes % 24.3 Monocytes % 7.8 Eosinophils % 6.6 H Basophils % 0.9 Sodium 140 Potassium 3.7 Chloride 106 Carbon Dioxide 28 Anion Gap 6 L BUN 29 H Creatinine 1.2 H Creat Clearance w eGFR 42.40 Random Glucose 114 H D Hemoglobin A1c % 6.0 D Calcium 8.3 L Magnesium 1.9 Total Bilirubin 0.6 AST 12 L D ALT 8 L Alkaline Phosphatase 81 Creatine Kinase 54 Troponin I 0.02 Total Protein 5.4 L Albumin 2.7 L Triglycerides 174 H Cholesterol 213 H Total LDL Cholesterol 149 H HDL Cholesterol 44 Active Medications Generic Name Dose Route Start Last Admin Trade Name Freq PRN Reason Stop Dose Admin Amlodipine Besylate 10 mg 07/20/16 10:00 07/20/16 10:21 Norvasc - PO 10 mg DAILY MELISSA Administration Aspirin 81 mg 07/20/16 10:00 07/20/16 10:21 Asa - PO 81 mg DAILY MELISSA Administration Folic Acid 1 mg 07/20/16 10:00 07/20/16 10:21 Folic Acid - PO 1 mg DAILY MELISSA Administration Heparin Sodium (Porcine) 5,000 unit 07/19/16 22:15 07/20/16 10:21 Heparin - SQ 5,000 unit BID MELISSA Administration Hydralazine HCl 10 mg 07/20/16 03:45 07/20/16 03:30 Apresoline Injection - IVPUSH 10 mg Q8H PRN Administration SBP >190 Hydrochlorothiazide 12.5 mg 07/20/16 10:00 07/20/16 10:21 Hctz - PO 12.5 mg DAILY MELISSA Administration Latanoprost 1 drop 07/20/16 22:00 Xalatan 0.005% Eye Drops - OU HS [facility] Levothyroxine Sodium 100 mcg/ 175 mcg 07/20/16 07:00 07/20/16 06:34 Levothyroxine Sodium 75 mcg PO 175 mcg DAILY@0700 MELISSA Administration Rosuvastatin Calcium 5 mg 07/20/16 22:00 Crestor - PO HS [facility] ASSESSMENT/PLAN: 86 yr old woman with afib admitted for heart block and bradycardia. Cardiovascular - sinus bradycardia with AV block with 2:1 conduction and LBBB - close continuous cardiac monitoring - hold toprol 25mg po daily, valsartan 160mg po qd, and avoid AV el blockers of any kind due to bradycardia - hydralazine 10mg IVpuch q8hr prn for SBP>190, atropine and pacemaker pads at bedside - cardiology consulted - ASA 81mg po daily, hctz 12.5mg po qd, amlodipine 10mg po daily - rosuvastatin 5mg po HS Pulmonary - maintain sat >90% - nasal cannula continuous 2lpm Renal - CKD stage 3 - urine pos for nitrite/leuk with high wbc, pt has hx of UTI's, currently asymptomatic/afebrile/without leukocytosis, pending urine cx Endocrine - hypothyroidism: synthroid 175mcg po daily, TSH 2.79, controlled - DM: HgbA1c 6.0, controlled Neurological - parkinson's -- continue sinemet - dementia - currently calm and cooperative #DVT heparin 5000 BID #Diet: diabetic Visit type - Emergency Visit Emergency Visit: No - New Patient This patient is new to me today: Yes Date on this admission: 07/20/16 - Critical Care Critical Care patient: Yes Total Critical Care Time (in minutes): 40 Critical Care Statement: The care of this patient involved high complexity decision making to prevent further life threatening deterioration of the patient 's condition and/or to evalute & treat vital organ system(s) failure or risk of failure.
[2016-07-20] MEDS ORDERED: LATANOPROST 0.005% OPHTH SOLN 2.5ML BOTTLE OU SCH (22:00)
[2016-07-20] MEDS ORDERED: ROSUVASTATIN CA 5 MG TABLET (FP) PO SCH (22:00)
[2016-07-21] MEDS: hydrALAZINE HCL 20 MG/ML VIAL IVPUSH PRN (05:00)
[2016-07-21] MEDS ORDERED: LEVOTHYROXINE NA 75 MCG TABLET (FP) ONE ×2 (06:06→08:28)
[2016-07-21] MEDS ORDERED: LEVOTHYROXINE NA 100 MCG TABLET (FP) ONE ×2 (06:06→08:28)
[2016-07-21] MEDS: LEVOTHYROXINE 100 MCG, LEVOTHYROXINE 75 MCG PO SCH (06:07)
--- NOTE | 2016-07-21 07:44 | PN ---
Progress Note (short form) - Note Progress Note: PULM / CRITICAL CARE PROGRESS NOTE: Pt seen and examined in the ICU 24 HOUR EVENTS: -Remains in heart block, but asymptomatic -Cardiology evaluated, possible EP evaluation at [facility] for PPM -No complaints Current Medications Amlodipine Besylate (Norvasc -) 10 mg PO DAILY [facility] Last Admin: 07/20/16 10:21 Dose: 10 mg Aspirin (Asa -) 81 mg PO DAILY [facility] Last Admin: 07/20/16 10:21 Dose: 81 mg Folic Acid (Folic Acid -) 1 mg PO DAILY [facility] Last Admin: 07/20/16 10:21 Dose: 1 mg Heparin Sodium (Porcine) (Heparin -) 5,000 unit SQ BID [facility] Last Admin: 07/20/16 21:44 Dose: 5,000 unit Hydralazine HCl (Apresoline Injection -) 10 mg IVPUSH Q8H PRN PRN Reason: SBP >190 Last Admin: 07/21/16 05:00 Dose: 10 mg Hydrochlorothiazide (Hctz -) 12.5 mg PO DAILY [facility] Last Admin: 07/20/16 10:21 Dose: 12.5 mg Latanoprost (Xalatan 0.005% Eye Drops -) 1 drop OU [facility] Last Admin: 07/20/16 23:02 Dose: 1 drop Levothyroxine Sodium 100 mcg/ (Levothyroxine Sodium 75 mcg) 175 mcg PO DAILY@ 0700 [facility] Last Admin: 07/21/16 06:07 Dose: 175 mcg Rosuvastatin Calcium (Crestor -) 5 mg PO [facility] Last Admin: 07/20/16 21:41 Dose: 5 mg Vital Signs Temp 97 F L 07/21/16 02:00 Pulse 37 L 07/21/16 06:00 Resp 18 07/21/16 06:00 BP 178/72 07/21/16 06:00 Pulse Ox 99 07/20/16 09:00 Intake & Output 07/20/16 07/21/16 07/21/16 18:59 06:59 18:59 Intake Total 480 400 Output Total 350 200 Balance 130 200 Weight 63.503 kg Intake: Oral 480 400 Output: Urine 350 200 Void 350 200 Other: Voiding Method Bedpan Bedpan # Unmeasured Voids Void 2 1 Bowel Movement Yes EXAM: Neuro: awake, alert HEENT: PERRL Lungs: diminished bases Heart: talia, irregular, S1 S2 Abd: soft, non-tender Ext: no edema, warm Skin: warm, dry CBC, BMP 07/20/16 05:10 07/20/16 05:10 Imaging - Results Chest X-ray: Report Reviewed, Image Reviewed Problem List - Problems (1) Bradycardia Code(s): R00.1 - BRADYCARDIA, UNSPECIFIED (2) DM2 (diabetes mellitus, type 2) Code(s): E11.9 - TYPE 2 DIABETES MELLITUS WITHOUT COMPLICATIONS (3) Dementia Code(s): F03.90 - UNSPECIFIED DEMENTIA WITHOUT BEHAVIORAL DISTURBANCE (4) Chronic kidney disease (CKD) Code(s): N18.9 - CHRONIC KIDNEY DISEASE, UNSPECIFIED Assessment/Plan 86 yo woman with asymptomatic bradycardia, 2nd degree HB -tele monitoring -O2 for sat >89% -cardiology following will need PPM -pacer pads bedside -cont home meds, holding el blockers -prn hydralazine for SBP >190 -DVT prophylaxis Can go to telemetry floor Marcelino Galdamez Pulm/Critical Care [employer]
--- NOTE | 2016-07-21 09:01 | PN ---
Progress Note, Physician Chief Complaint: Bradycardia History of Present Illness: No overnight events. Betablockers were discontinued. No symptoms reported. Today patient denies any CP, palpitations, SOB, dizziness, lightheadedness, syncope or near syncope. No current complaints. Tele: Currently on sinus talia with second degree ABV (Mobitz I). There were occasional short episodes of second degree AVB Mobitz II and 2:1 AVB. Prior ECG: Sinus bradycardia 40-50s. Second degree AVB Mobitz I with 2:1 conduction. LBBB with abnormal repolarization. Baseline ECG 06/2016: Sinus talia at 50. First degree AVB with LBBB. New echocardiogram reported normal LV function with impairmant of diastolic function. No significant VHD (Mild MR, mild aortic sclerosis). Last echo 06/2015: EF: 59%. Moderate MR, mod MAC, mild pHTN, mild - Current Medication List Current Medications: Active Medications Amlodipine Besylate (Norvasc -) 10 mg PO DAILY [facility] Last Admin: 07/20/16 10:21 Dose: 10 mg Aspirin (Asa -) 81 mg PO DAILY [facility] Last Admin: 07/20/16 10:21 Dose: 81 mg Folic Acid (Folic Acid -) 1 mg PO DAILY [facility] Last Admin: 07/20/16 10:21 Dose: 1 mg Heparin Sodium (Porcine) (Heparin -) 5,000 unit SQ BID [facility] Last Admin: 07/20/16 21:44 Dose: 5,000 unit Hydralazine HCl (Apresoline Injection -) 10 mg IVPUSH Q8H PRN PRN Reason: SBP >190 Last Admin: 07/21/16 05:00 Dose: 10 mg Hydrochlorothiazide (Hctz -) 12.5 mg PO DAILY [facility] Last Admin: 07/20/16 10:21 Dose: 12.5 mg Ceftriaxone Sodium (Rocephin 1gm Ivpb (Pre-Docked)) 50 mls @ 100 mls/hr IVPB DAILY [facility] Latanoprost (Xalatan 0.005% Eye Drops -) 1 drop OU HS [facility] Last Admin: 07/20/16 23:02 Dose: 1 drop Levothyroxine Sodium 100 mcg/ (Levothyroxine Sodium 75 mcg) 175 mcg PO DAILY@ 0700 [facility] Last Admin: 07/21/16 06:07 Dose: 175 mcg Rosuvastatin Calcium (Crestor -) 5 mg PO HS [facility]ELISSA Last Admin: 07/20/16 21:41 Dose: 5 mg - Objective Vital Signs: Vital Signs Temperature 97 F L 07/21/16 02:00 Pulse Rate 38 L 07/21/16 08:00 Respiratory Rate 18 07/21/16 08:00 Blood Pressure 183/43 07/21/16 08:00 O2 Sat by Pulse Oximetry (%) 99 07/21/16 08:21 Constitutional: Yes: No Distress, Calm Neck: Yes: WNL, Supple Cardiovascular: Yes: Bradycardia, Pulse Irregular, S1, S2. No: Bruit, JVD, Gallop, Murmur, S3, S4 Respiratory: Yes: WNL, CTA Bilaterally Gastrointestinal: Yes: Normal Bowel Sounds, Soft Extremities: Yes: WNL Neurological: Yes: Alert, Oriented (AAOx2, unchanged) Labs: CBC, BMP 07/20/16 05:10 07/20/16 05:10 TSH: 2.79. Ma.9. GFR: 42 - ....Imaging Chest X-ray: Report Reviewed, Image Reviewed EKG: Report Reviewed, Image Reviewed (ECG today:) Assessment/Plan 86 yo F with history of HTN, DM, CVA, hypothyroid, parkinson, CKD, (Cr 1.2-1.3) , and mild dementia Patient admitted with sinus bradycardia and second degree AVB Mobitz I (2:1) conduction in the setting of beta-blockers (Sinus bradycardia with First degree AVB and LBBB at baseline). Asymptomatic with elevated BP. Negative ischemic work up. Normal LV function on new echocardiogram. Tele showed occasional episodes of second degree AVB Mobitz II and 2:1 last night Recommendations: Case was discussed and ECGs were reviewed with EP service at [facility]. Patient accepted to CCU for further work-up and PPM. Patient to be transferred. Avoid AVN blockers. Continue telemetry monitoring in ICU for now. Keep transcutaneous pacemaker pads and Atropine at bedside. Please start Dopamine or Isoproterenol if new episodes of advanced AVB Optimization of BP control is required. Follow up of renal function and lytes Keep Lytes within the normal limits. Discussed with ICU team and PMD Will follow with you
[2016-07-21] MEDS: ASPIRIN 81 MG CHEWABLE TABLETS PO SCH (09:03)
[2016-07-21] MEDS: FOLIC ACID 1 MG TABLET (FP) PO SCH (09:03)
[2016-07-21] MEDS: amLODIPine BESYLATE 10 MG TABLET (FP) PO SCH (09:04)
[2016-07-21] MEDS: HYDROCHLOROTHIAZIDE 12.5 MG CAPSULE (FP) PO SCH (09:04)
[2016-07-21] MEDS: HEPARIN NA (PORCINE) 5,000 UNITS/ML 1ML VIAL SQ SCH (09:04)
[2016-07-21 09:12] VITALS: TEMP 98
--- NOTE | 2016-07-21 09:22 | EKG ---
Test Reason : Blood Pressure : / mmHG Vent. Rate : 043 BPM Atrial Rate : 064 BPM P-R Int : 000 ms QRS Dur : 140 ms QT Int : 542 ms P-R-T Axes : 000 -32 138 degrees QTc Int : 457 ms POOR DATA QUALITY, INTERPRETATION MAY BE ADVERSELY AFFECTED SINUS RHYTHM WITH 2ND DEGREE A-V BLOCK (MOBITZ I) WITH 2:1 A-V CONDUCTION LEFT AXIS DEVIATION LEFT BUNDLE BRANCH BLOCK ABNORMAL ECG WHEN COMPARED WITH ECG OF 19-JUL-2016 19:52, PREVIOUS ECG HAS UNDETERMINED RHYTHM, NEEDS REVIEW QT HAS LENGTHENED Confirmed by NEELIMA SALCIDO MD ([id number]) on 07/21/2016 9:22:04 AM Referred By: Confirmed By:NEELIMA SALCIDO MD
[2016-07-21] MEDS: hydrALAZINE HCL 20 MG/ML VIAL IVPUSH ONE ×2 (09:24→10:07)
[2016-07-21] MEDS ORDERED: CEFTRIAXONE 50 ML IVPB SCH (10:00)
--- NOTE | 2016-07-21 10:14 | PN ---
Progress Note, Physician History of Present Illness: NO COMPLAINTS IN BED - Current Medication List Current Medications: Active Medications Amlodipine Besylate (Norvasc -) 10 mg PO DAILY [facility] Last Admin: 07/21/16 09:04 Dose: 10 mg Aspirin (Asa -) 81 mg PO DAILY [facility] Last Admin: 07/21/16 09:03 Dose: 81 mg Folic Acid (Folic Acid -) 1 mg PO DAILY [facility] Last Admin: 07/21/16 09:03 Dose: 1 mg Heparin Sodium (Porcine) (Heparin -) 5,000 unit SQ BID [facility] Last Admin: 07/21/16 09:04 Dose: 5,000 unit Hydralazine HCl (Apresoline Injection -) 10 mg IVPUSH Q8H PRN PRN Reason: SBP >190 Last Admin: 07/21/16 05:00 Dose: 10 mg Hydrochlorothiazide (Hctz -) 12.5 mg PO DAILY [facility] Last Admin: 07/21/16 09:04 Dose: 12.5 mg Ceftriaxone Sodium (Rocephin 1gm Ivpb (Pre-Docked)) 50 mls @ 100 mls/hr IVPB DAILY [facility] Latanoprost (Xalatan 0.005% Eye Drops -) 1 drop OU [facility] Last Admin: 07/20/16 23:02 Dose: 1 drop Levothyroxine Sodium 100 mcg/ (Levothyroxine Sodium 75 mcg) 175 mcg PO DAILY@ 0700 [facility] Last Admin: 07/21/16 06:07 Dose: 175 mcg Losartan Potassium (Cozaar -) 25 mg PO DAILY ONE Stop: 07/21/16 09:54 Rosuvastatin Calcium (Crestor -) 5 mg PO [facility] Last Admin: 07/20/16 21:41 Dose: 5 mg - Objective Vital Signs: Vital Signs Temperature 98 F 07/21/16 09:12 Pulse Rate 66 07/21/16 10:02 Respiratory Rate 18 07/21/16 10:02 Blood Pressure 168/52 07/21/16 10:02 O2 Sat by Pulse Oximetry (%) 99 07/21/16 08:21 Cardiovascular: Yes: Regular Rate and Rhythm Respiratory: Yes: Regular, CTA Bilaterally Gastrointestinal: Yes: Normal Bowel Sounds, Soft Edema: No Labs: CBC, BMP 07/20/16 05:10 07/20/16 05:10 Problem List - Problems (1) AV block, 2nd degree Assessment/Plan: off b-nikole--STILL WITH 2ND DEGREE AV BLOCK ICU CARDIO====DISCUSSED WITH DR LIMON--NEEDS PACEMAKER WILL GET SURGICAL CONSULT FOR PACER Code(s): I44.1 - ATRIOVENTRICULAR BLOCK, SECOND DEGREE (2) Bradycardia Assessment/Plan: as above Code(s): R00.1 - BRADYCARDIA, UNSPECIFIED (3) DM2 (diabetes mellitus, type 2) Assessment/Plan: bgm ss Code(s): E11.9 - TYPE 2 DIABETES MELLITUS WITHOUT COMPLICATIONS (4) Dementia Assessment/Plan: monitor ms Code(s): F03.90 - UNSPECIFIED DEMENTIA WITHOUT BEHAVIORAL DISTURBANCE (5) Hypothyroid Assessment/Plan: tsh 2 same meds Code(s): E03.9 - HYPOTHYROIDISM, UNSPECIFIED Assessment/Plan - Problems (1) Bradycardia monitor in icu cardio echo Code(s): R00.1 - BRADYCARDIA, UNSPECIFIED (2) DM2 (diabetes mellitus, type 2) bg ss Code(s): E11.9 - TYPE 2 DIABETES MELLITUS WITHOUT COMPLICATIONS (3) Dementia Code(s): F03.90 - UNSPECIFIED DEMENTIA WITHOUT BEHAVIORAL DISTURBANCE (4) Chronic kidney disease (CKD) monitor renal function Code(s): N18.9 - CHRONIC KIDNEY DISEASE, UNSPECIFIED
[2016-07-21] MEDS ORDERED: LOSARTAN POTASSIUM 25 MG TABLET PO ONE (10:30)
[2016-07-21 11:56] LABS: MCH 29.5 pg (25.7-33.7); MCHC 33.9 g/dl (32.0-36.0); MEAN PLT VOLUME 8.3 fl (7.5-11.1); PLATELET COUNT 217 K/MM3 (134-434); RDW 14.8 % (11.6-15.6); WHITE BLOOD COUNT 8.4 K/mm3 (4.0-10.0)
[2016-07-21 12:13] LABS: CALCIUM 8.3 mg/dL (8.5-10.1); COCKROFT - GAULT 25.9845; CREATININE 1.5 mg/dL (0.55-1.02)
[2016-07-21 12:14] LABS: INR 0.97 (0.82-1.09); PROTHROMBIN TIME (PATIENT) 10.7 SEC (9.98-11.88)
[2016-07-21 13:45] VITALS: BP 150/60; PULSE 56
--- NOTE | 2016-07-21 16:28 | EKG ---
Test Reason : Blood Pressure : / mmHG Vent. Rate : 047 BPM Atrial Rate : 047 BPM P-R Int : 218 ms QRS Dur : 158 ms QT Int : 524 ms P-R-T Axes : 077 -33 152 degrees QTc Int : 463 ms WITH 2ND DEGREE A-V BLOCK (MOBITZ II) LEFT AXIS DEVIATION LEFT BUNDLE BRANCH BLOCK ABNORMAL ECG WHEN COMPARED WITH ECG OF 20-JUL-2016 09:17, PREMATURE ATRIAL COMPLEXES ARE NOW PRESENT THERE IS NOW 2ND DEGREE A-V BLOCK (MOBITZ II) Confirmed by NEELIMA SALCIDO MD ([id number]) on 07/21/2016 4:27:38 PM Referred By: Dia MEEHAN Confirmed By:NEELIMA SALCIDO MD
--- NOTE | 2016-07-23 13:41 | EKG ---
Test Reason : Blood Pressure : / mmHG Vent. Rate : 039 BPM Atrial Rate : 039 BPM P-R Int : 000 ms QRS Dur : 150 ms QT Int : 558 ms P-R-T Axes : 000 -24 146 degrees QTc Int : 449 ms SINUS BRADYCARDIA WITH 2ND DEGREE AV BLOCK LIKELY [place] LEFT BUNDLE BRANCH BLOCK ABNORMAL ECG WHEN COMPARED WITH ECG OF 20-JUL-2016 09:17, NO SIGNIFICANT CHANGE WAS FOUND Confirmed by ZULY RICHARD MD ([id number]) on 07/23/2016 1:41:02 PM Referred By: Confirmed By:ZULY RICHARD MD
== END 2016-07-21 13:12 | disposition short-term general hospital (02) | DRG 310 ==
LOC: JER 17:21 → JERBED 19:33 → JICU 07-20 01:55
PROVIDERS: ADMIT Family Medicine; ATTEND Family Medicine
DX: I44.1 Atrioventricular block, second degree (principal); R00.1 Bradycardia, unspecified; E03.9 Hypothyroidism, unspecified; G20 Parkinson's disease; F03.90 Unspecified dementia, unspecified severity, without behavioral disturbance, psychotic disturbance, mood disturbance, and anxiety; E11.22 Type 2 diabetes mellitus with diabetic chronic kidney disease; I12.9 Hypertensive chronic kidney disease with stage 1 through stage 4 chronic kidney disease, or unspecified chronic kidney disease; N18.3 Chronic kidney disease, stage 3 (moderate); I34.0 Nonrheumatic mitral (valve) insufficiency; I44.7 Left bundle-branch block, unspecified
CPT/HCPCS: 36415; 71010-TC; 80048; 80053; 80061; 81003; 81015; 82550; 83036; 83721; 83735; 84443; 84484; 85025; 85027; 85610; 85730; 87086; 87186; 93005; 93010; 93306-TC; 99285-25; J1644

== ENCOUNTER 2016-09-12 12:24 | Emergency (ER) | payer OTHER, BC ==
[2016-09-12 12:37] VITALS: BMI 29.2
--- NOTE | 2016-09-12 13:14 | PDOC ---
History of Present Illness - General History Source: Patient Exam Limitations: No Limitations - History of Present Illness Initial Comments: 09/12/16 16:20 The patient is a 86 year old female, with a significant past medical history of HTN, DM, dementia, CVA, hypothyroid, pacemaker, parkinson's disease, who presents to the emergency department with weakness. The pt recently had a PM placed, and was d/c to [facility] for rehab. She was discharged this morning and couldnt make it up the stairs at home so her daughter called EMS. She denies recent fevers, chills, headache or dizziness. She denies recent nausea, vomit, diarrhea or constipation. She denies recent dysuria, frequency, urgency or hematuria. She denies recent chest pain or shortness of breath. Pt states she is able to ambulate on flat ground ok, but unable ot go up stairs well. Allergies: NKA Past surgical history: See HPI Social history: Nonsmoker. Denies EtOH use and recreational drug use. Primary Care Physician: . <Stanley Trevino - Last Filed: 09/12/16 16:20> - General History Source: Patient Exam Limitations: No Limitations <Jn Sepulveda - Last Filed: 09/12/16 17:16> - General Chief Complaint: Weakness Stated Complaint: Weakness Time Seen by Provider: 09/12/16 12:54 Past History <Stanley Trevino - Last Filed: 09/12/16 16:20> - Past Medical History Anemia: No Asthma: No Cancer: No Cardiac Disorders: Yes (pacemaker 2017) CVA: No COPD: No CHF: No Dementia: Yes Diabetes: Yes GI Disorders: No Disorders: No HTN: Yes Hypercholesterolemia: No Liver Disease: No Seizures: No Thyroid Disease: Yes - Surgical History Abdominal Surgery: Yes (EXPLORATIVE) Appendectomy: Yes Cardiac Surgery: No Cholecystectomy: No Lung Surgery: No Neurologic Surgery: No Orthopedic Surgery: No - Psycho/Social/Smoking Cessation Hx Anxiety: No Suicidal Ideation: No Smoking History: Never smoked Have you smoked in the past 12 months: No Information on smoking cessation initiated: No Hx Alcohol Use: No Drug/Substance Use Hx: No Substance Use Type: None <Jn Sepulveda - Last Filed: 09/12/16 17:16> - Past Medical History Allergies/Adverse Reactions: Allergies Allergy/AdvReac Type Severity Reaction Status Date / Time No Known Allergies Allergy Verified 09/12/16 12:37 Home Medications: Ambulatory Orders Amlodipine Besylate 10 mg PO DAILY 06/24/16 Aspirin [ASA -] 81 mg PO DAILY 06/24/16 Bimatoprost [Lumigan] 1 drop IO DAILY 06/24/16 Ergocalciferol [Drisdol -] 50,000 unit PO Q7D@1000 06/24/16 Hydrochlorothiazide [Hctz -] 25 mg PO DAILY 06/24/16 Levothyroxine [Synthroid -] 175 mcg PO DAILY 06/24/16 Metoprolol Tartrate 25 mg PO DAILY 06/24/16 Atorvastatin Ca [Lipitor] 10 mg PO HS 09/12/16 Carbidopa/Levodopa [Carbidopa-Levodopa 25-100 Tab] 1 each PO TID 09/12/16 Nystatin Powder [Nystop Topical Powder -] 15 gm TP BID 09/12/16 Review of Systems - Review of Systems Able to Perform ROS?: Yes Comments:: 09/12/16 16:20 CONSTITUTIONAL: +Generalized Weakness. No reported: Fever, Chills, Diaphoresis, Malaise, Loss of Appetite HEENT: No reported: Rhinorrhea, Nasal Congestion, Throat Pain, Throat Swelling, Difficulty Swallowing, Mouth Swelling, Ear Pain, Eye Pain, Visual Changes CARDIOVASCULAR: No reported: Chest Pain, Syncope, Palpitations, Irregular Heart Rate, Lightheadedness, Peripheral Edema RESPIRATORY: No reported: Cough, Shortness of Breath, SOB with Exertion, Orthopnea, Wheezing , Stridor, Hemoptysis GASTROINTESTINAL: No reported: Abdominal pain, Abdominal Distension, Nausea, Vomiting, Diarrhea, Constipation, Melena, Hematochezia GENITOURINARY: No reported: Dysuria, Frequency, Urgency, Hesitancy, Flank Pain, Genital Pain MUSCULOSKELETAL: No reported: Myalgia, Arthralgia, Joint Swelling, Back pain, Neck Pain SKIN: No reported: Rash, Itching, Pallor HEMATOLOGIC/IMMUNOLOGIC: No reported: Easy Bleeding, Easy Bruising, Lymphadenopathy, Frequent infections ENDOCRINE: No reported: Unexplained Weight Gain, Unexplained Weight Loss, Heat Intolerance , Cold Intolerance NEUROLOGIC: No reported: Headache, Focal Weakness, Paresthesias, Vertigo, Lightheadedness, Unsteady Gait, Seizure, Mental Status Changes, Incontinence PSYCHIATRIC: No reported: Anxiety, Depression <ZakiyayStanley - Last Filed: 09/12/16 16:20> *Physical Exam - Vital Signs Last Vital Signs Temp Pulse Resp BP Pulse Ox 97.6 F 80 18 175/64 98 09/12/16 12:34 09/12/16 12:34 09/12/16 12:34 09/12/16 12:34 09/12/16 12:34 - Physical Exam Comments: 09/12/16 16:20 GENERAL: The patient is awake, alert, and fully oriented, Nontoxic - in no acute distress. HEAD: Normocephalic, atraumatic. EYES: extraocular movements intact, sclera anicteric, conjunctiva clear. ENT: Normal voice, Moist mucous membranes. NECK: Normal range of motion, supple LUNGS: Breath sounds equal, clear to auscultation bilaterally. No wheezes, no rhonchi, no rales. HEART: PM in L chest, heart rate regular ABDOMEN: Soft, nontender, normoactive bowel sounds. No guarding, no rebound.No CVA tenderness EXTREMITIES: Normal range of motion, no edema. No clubbing or cyanosis. No cords , erythema, or tenderness. NEUROLOGICAL: No facial asymmetry, Normal speech PSYCH: Normal mood, normal affect. SKIN: Warm, Dry, normal turgor. <ImmanuelReneeStanley Downing - Last Filed: 09/12/16 16:20> - Vital Signs Last Vital Signs Temp Pulse Resp BP Pulse Ox 97.6 F 80 18 175/64 98 09/12/16 12:34 09/12/16 12:34 09/12/16 12:34 09/12/16 12:34 09/12/16 12:34 <Jn Sepulveda - Last Filed: 09/12/16 17:16> Heart Score/ECG Review - ECG Impressions Comment:: 09/12/16 17:15 Twelve-lead EKG was performed and reviewed by me. AV dual paced rhthm rate of 60 <Jn Sepulveda - Last Filed: 09/12/16 17:16> ED Treatment Course - LABORATORY CBC & Chemistry Diagram: 09/12/16 14:11 09/12/16 14:11 - ADDITIONAL ORDERS Additional order review: Laboratory Results 09/12/16 14:11 Sodium 139 Potassium 3.9 Chloride 103 Carbon Dioxide 27 Anion Gap 9 BUN 26 H D Creatinine 1.1 H D Creat Clearance w eGFR 46.88 Random Glucose 114 H D Calcium 9.3 Total Bilirubin 0.7 AST 12 L ALT 8 L Alkaline Phosphatase 121 H D Total Protein 6.6 D Albumin 3.0 L 09/12/16 14:11 RBC 3.55 L MCV 85.7 MCHC 34.6 RDW 14.6 MPV 7.5 Neutrophils % 60.3 Lymphocytes % 24.8 Monocytes % 6.9 Eosinophils % 6.8 H Basophils % 1.2 <Stanley Trevino - Last Filed: 09/12/16 16:20> - LABORATORY CBC & Chemistry Diagram: 09/12/16 14:11 09/12/16 14:11 <Jn Sepulveda - Last Filed: 09/12/16 17:16> Medical Decision Making - Medical Decision Making 09/12/16 13:17 86y F hx of barcycardia s/p PM, dm, hld, hyothryoidism was discharged from rehab today and was going home with daughter. The pt was unable to walk up her stairs so the daugther called EMS. 09/12/16 14:10 case dw PT, pt unable to safelu ambulate up stairs case d/w dr. Pedersen requests admission for unstable gait will ck labs/ua/xray/ekg 09/12/16 15:[address] pedersen had disussed with [facility] - the pt can be discharged back to NH 09/12/16 15:34 labs unremarkable awaitng xrays if neg will dc back to rehab A portion of this note was documented by scribe services under my direction. I have reviewed the details of the note, within reason, and agree with the documentation with the following case summary and management plan written by me <Jn Sepulveda - Last Filed: 09/12/16 17:16> *DC/Admit/Observation/Transfer - Attestations Scribe Attestion: 09/12/16 16:20 Documentation prepared by Stanley Trevino, acting as medical charge entry specialist for Jn Sepulveda MD. <Stanley Trevino - Last Filed: 09/12/16 16:20> - Discharge Dispostion Admit: No <Jn Sepulveda - Last Filed: 09/12/16 17:16> Diagnosis at time of Disposition: Unstable gait - Discharge Dispostion Disposition: [facility] Condition at time of disposition: Improved - Referrals Referrals: Jennifer Pedersen MD [Primary Care Provider] - - Patient Instructions Additional Instructions: Return to the emergency department immediately with ANY new, persistent or worsening symptoms. You MUST call and follow up with your doctor tomorrow for further evaluation of your symptoms. Results were discussed with you. Please make sure your doctor reviews the results of your emergency evaluation. If you had any xrays during your visit, it was read preliminarily by myself, a Radiologist will review it and if there are any additional findings we will call you.
[2016-09-12 14:26] LABS: BASOPHIL 1.2 % (0-2.0); EOSINOPHIL 6.8 % (0-4.5); MCH 29.6 pg (25.7-33.7); MCHC 34.6 g/dl (32.0-36.0); MEAN CELL VOLUME 85.7 fl (80-96); MEAN PLT VOLUME 7.5 fl (7.5-11.1); NEUTROPHILS 60.3 % (42.8-82.8); PLATELET COUNT 295 K/MM3 (134-434); RDW 14.6 % (11.6-15.6); WHITE BLOOD COUNT 9.2 K/mm3 (4.0-10.0)
[2016-09-12 15:24] LABS: ALK PHOS 121 U/L (45-117); BILIRUBIN,TOTAL 0.7 mg/dL (0.2-1.0); CREATININE 1.1 mg/dL (0.55-1.02); GLUCOSE,RANDOM 114 mg/dL (74-106); SGOT/AST 12 U/L (15-37); SGPT/ALT 8 U/L (12-78); TOT PROT 6.6 g/dl (6.4-8.2)
[2016-09-12 15:25] LABS: ANION GAP 9 (8-16); CALCIUM 9.3 mg/dL (8.5-10.1); CO2 27 mmol/L (21-32)
[2016-09-12 17:10] VITALS: BP 149/75; PULSE 81; TEMP 97.9
--- NOTE | 2016-09-13 11:16 | EKG ---
Test Reason : Blood Pressure : / mmHG Vent. Rate : 060 BPM Atrial Rate : 058 BPM P-R Int : 206 ms QRS Dur : 170 ms QT Int : 488 ms P-R-T Axes : 004 -55 098 degrees QTc Int : 488 ms POOR DATA QUALITY, INTERPRETATION MAY BE ADVERSELY AFFECTED AV dual-paced rhythm ABNORMAL ECG WHEN COMPARED WITH ECG OF 21-JUL-2016 10:33, ELECTRONIC VENTRICULAR PACEMAKER HAS REPLACED SINUS RHYTHM Confirmed by SAPNA RICKETTS, LAURA ([id number]) on 09/13/2016 11:16:19 AM Referred By: Confirmed By:LAURA ALEJO MD
== END 2016-09-12 17:10 ==
LOC: JER 12:24
DX: R53.1 Weakness (principal); I10 Essential (primary) hypertension; E11.9 Type 2 diabetes mellitus without complications; E03.9 Hypothyroidism, unspecified; G20 Parkinson's disease; Z86.73 Personal history of transient ischemic attack (TIA), and cerebral infarction without residual deficits; Z95.0 Presence of cardiac pacemaker
CPT/HCPCS: 36415; 71010-TC; 80053; 85025; 93005; 93010; 99285-25